=== PATIENT | male | born 1940 | race Caucasian/White ===

== ENCOUNTER 2021-02-10 12:47 | Outpatient (REF) | payer MEDICARE, OTHER, SELFPAY ==
--- NOTE | 2021-02-10 17:09 | MHC.AU.ANH ---
Adult Audiological Evaluation Date of Visit: 02/10/21 Reason for Appointment: Audiological evaluation to monitor the status of Mr. Abrams's hearing loss. He has previously been followed by audiology at [facility]. He notes that he hasn't been happy with the hearing aids as he has a difficult time inserting them. Previous Hearing Test Results: Results not available to be reviewed. Medical History: Medical History: Diabetes, High Blood Pressure Medical History: High cholesterol Medication List: Patient did not have list with him. Hearing Instrument History- Right Ear: Nurse Ldr: Oticon Model: Opn S 3 miniRITE-R Serial Number: [id number] Battery Size: Rechargeable Repair Warranty: 07/11/2022 Loss and Damage Warranty: 07/11/2022 Dispensed By: [facility] Date of Fittin07/11/2019 Hearing Instrument History- Left Ear: Nurse Ldr: Oticon Model: Opn S 3 miniRITE-R Serial Number: [id number] Battery Size: Rechargeable Warranty: 07/11/2022 Loss and Damage Warranty: 07/11/2022 Dispensed By: [facility] Date of Fittin07/11/2019 Otoscopy: Right Ear: Unremarkable Left Ear: Partially occluded with cerumen Tympanometry: Tympanometry performed due to: To assess integrity of the middle ear system Right Ear: Reduced Middle Ear Compliance (Type As) Left Ear: Reduced Middle Ear Compliance (Type As) Hearing Evaluation: Transducer(s) Used: Insert earphones Method: Conventional audiometry, bone conduction Stimuli Used: Pure tones Right Ear: Description of Hearing: Moderate sloping to moderately severe sensorineural hearing loss from 250-8000 Hz. Left Ear: Description of Hearing: Moderately severe mixed hearing loss from 250-500 Hz and a moderately severe sensorineural hearing loss from 3199-1942 Hz. Speech Recognition Threshold (SRT): Method Used: Monitored Live Voice Stimuli Used: Spondee Words Right Ear: 45 dBHL Left Ear: 65 dBHL Word Discrimination: Method: Recorded Lists Word Lists Used: NU-6 Right Ear: 44% at 85 dBHL Left Ear: 32% at 90 dBHL Recommendations: Audiological re-evaluation in one year. Hearing aids sent for repair and ordering new earmolds. Will reprogram to today's audiogram and review hearing aid use with patient when aids and molds arrive. Diagnosis: Primary Diagnosis: H90.3 Bilateral Sensorineural Hearing Loss Services Performed: Comprehensive Audiological Evaluation (CPT 30264) Tympanometry (CPT 70378) Signature: Provider: Wai Kearney, CCC-A
== END 2021-02-10 12:48 | disposition home or self-care (01) ==
LOC: HO.SH 12:47
PROVIDERS: Visit Provider Registered Nurse
DX: H90.3 Sensorineural hearing loss, bilateral (principal)
CPT/HCPCS: 92557; 92567

== ENCOUNTER 2021-02-10 14:01 | Outpatient (REF) | payer SELFPAY ==
--- NOTE | 2021-02-10 17:15 | MHC.AU.HFU ---
Hearing Instrument Follow-Up- Binaural Date of Visit: 02/10/21 Right Ear: Sink Maker: Oticon Model: Opn 2 3 miniRITE-R Serial Number: [id number] Repair Warranty: 07/11/2022 Loss and Damage Warranty: 07/11/2022 Battery Size: Rechargeable Oracle Adf Consultant: Size 3 85 gain Type of Dome: 8mm vented Type of Wax Guard: Prowax minifit Left Ear: Sink Maker: Oticon Model: Opn S 3 miniRITE-R Serial Number: [id number] RepairWarranty: 07/11/2022 Loss and Damage Warranty: 07/11/2022 Battery Size: Rechargeable Oracle Adf Consultant: Size 3 85 gain Type of Dome: 8mm power Type of Wax Guard: Prowax minifit Follow-Up Summary: Patient paid transfer of care fee. He states his hearing aids aren't working and he doesn't like them because he has a hard time inserting them. He had his late 's hearing aids, unmatching JackBe BTEs, and stated he'd rather use those. Advised that the Oticon MAMADOU aids are better because that are a set and they're rechargable. Aids won't charge and likely need new batteries. Sent both for repair. Took earmold impressions and ordered custom earmolds. Recommendations: Recommendations: Patient will be contacted when materials have arrived. Signature: Provider: Wai Kearney, CCC-A
== END 2021-02-10 14:02 | disposition home or self-care (01) ==
LOC: HO.HAP 14:01
DX: Z46.1 Encounter for fitting and adjustment of hearing aid (principal); H90.3 Sensorineural hearing loss, bilateral
CPT/HCPCS: V5011

== ENCOUNTER 2021-03-02 14:14 | Outpatient (REF) | payer SELFPAY ==
--- NOTE | 2021-03-03 12:09 | MHC.AU.HFU ---
Hearing Instrument Follow-Up- Binaural Date of Visit: 03/02/21 Right Ear: Senior Applications Engineer: Oticon Model: Opn 2 3 miniRITE-R Serial Number: [id number] Repair Warranty: 07/11/2022 Loss and Damage Warranty: 07/11/2022 Battery Size: Rechargeable Supervisor [employer]: Size 3 85 gain Type of Dome: 8mm vented Type of Mold: RITE Mold Power 100 Supervisor [employer] #[id number] Repair Warranty 03/25/2024 Type of Wax Guard: ProWax Left Ear: Senior Applications Engineer: Oticon Model: Opn S 3 miniRITE-R Serial Number: [id number] RepairWarranty: 07/11/2022 Loss and Damage Warranty: 07/11/2022 Battery Size: Rechargeable Supervisor [employer]: Size 3 85 gain Type of Dome: 8mm power Type of Mold: RITE Mold Power 100 Supervisor [employer] #[id number] Repair Warranty 03/25/2024 Type of Wax Guard: ProWax Follow-Up Summary: Patient arrived to berry picker machine operator his repaired Oticon hearing aids and his new custom Power molds. Patient reported the molds were comfortable and he could hear well. He was able to insert the molds. At patient request, reviewed how to change the wax traps and clean the hearing aids. Patient asked if he could still wear his late 's hearing aids (Mookie BTEs that are unmatching models). Based on the conversation with the patient, a portion of this desire to wear his late 's Mookie hearing aids may be sentimental, as he reports missing her dearly. From an audiological perspective, the Oticon hearing aids would be preferable. The Oticon hearing aids are newer technology. They also are a matching set, which is important, as many features need two matching hearing aids in order to be used. From a sentimental perspective, as long as the Mookie hearing aids are programmed for his hearing loss, he could still use them occasionally and benefit from them; however, the Oticon hearing aids would be the most beneficial. Recommendations: Recommendations: Hearing instrument follow-up or maintenance as needed. Patient paid $190 for the new molds. Diagnosis Code(s): Primary Diagnosis: H90.3 Bilateral Sensorineural Hearing Loss Signature: Provider: Wai James, [facility]
== END 2021-03-02 14:15 | disposition home or self-care (01) ==
LOC: HO.HAP 14:14
PROVIDERS: Visit Provider Registered Nurse
DX: Z46.1 Encounter for fitting and adjustment of hearing aid (principal); H90.3 Sensorineural hearing loss, bilateral
CPT/HCPCS: V5264

== ENCOUNTER 2021-06-15 14:10 | Outpatient (REF) | payer SELFPAY | END 2021-06-15 14:11 | disposition home or self-care (01) | LOC: HO.HAP 14:10 | PROVIDERS: PCP Registered Nurse; Visit Provider Registered Nurse | DX: Z13.89 Encounter for screening for other disorder (principal) ==

== ENCOUNTER 2021-07-06 13:20 | Outpatient (REF) | payer SELFPAY | END 2021-07-06 13:21 | disposition home or self-care (01) | LOC: HO.HAP 13:20 | PROVIDERS: Visit Provider Registered Nurse | DX: Z13.89 Encounter for screening for other disorder (principal) ==

== ENCOUNTER 2022-03-15 13:22 | Outpatient (REF) | payer SELFPAY | END 2022-03-15 13:23 | disposition home or self-care (01) | LOC: HO.HAP 13:22 | PROVIDERS: Visit Provider Registered Nurse | DX: Z46.1 Encounter for fitting and adjustment of hearing aid (principal); H90.3 Sensorineural hearing loss, bilateral | CPT/HCPCS: V5299 ==

== ENCOUNTER 2022-05-16 09:58 | Outpatient (REF) | payer SELFPAY ==
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
== END 2022-05-16 09:59 | disposition home or self-care (01) ==
LOC: HO.HAP 09:58
PROVIDERS: Visit Provider Registered Nurse
DX: Z13.89 Encounter for screening for other disorder (principal)

== ENCOUNTER 2022-06-01 16:15 | Outpatient (REF) | payer SELFPAY | END 2022-06-01 16:16 | disposition home or self-care (01) | LOC: HO.HAP 16:15 | PROVIDERS: Visit Provider Registered Nurse | DX: Z13.89 Encounter for screening for other disorder (principal) ==